=== PATIENT | female | born 1980 | race African-American/Black ===

== ENCOUNTER 2016-07-22 00:13 | Emergency (ER) | payer MEDICAID ==
[~2016-07-22] VITALS: Ht 165.1 cm; Wt 104.0 kg
[~2016-07-22 00:13] MED LIST: PREN-88 PO
[2016-07-22] MEDS ORDERED: SODIUM CHLORIDE 0.9% 1,000 ML IV ONE (04:16)
[2016-07-22] MEDS ORDERED: ONDANSETRON HCL 4MG/2ML VIAL IV ONE (04:30)
[2016-07-22 04:45] LABS: BASOPHILS % 0.3 % (0.0-2.0); EOSINOPHILS % 0.2 % (0.0-5.0); HEMATOCRIT. 36.6 % (36.0-48.0); HEMOGLOBIN. 12.1 g/dL (12.0-16.0); LYMPHOCYTES % 32.8 % (20.0-50.0); MEAN CORPUSCULAR HEMOGLOBIN 27.1 pg (28.0-32.0); MEAN CORPUSCULAR HGB CONC 33.1 g/dL (31.0-37.0); MEAN PLATELET VOLUME 8.9 fl (7.4-10.4); MONOCYTES % 9.6 % (2.0-8.0); NEUTROPHILS % 57.1 % (40.0-76.0); PLATELET 203 x1000/uL (130-400); RED BLOOD CELL COUNT 4.46 mill/uL (4.2-5.4); RED CELL DISTRIBUTION WIDTH 13.6 % (11.6-14.6); WHITE BLOOD COUNT 5.7 x1000/uL (4.5-11.0)
[2016-07-22 04:49] LABS: CHLORIDE 104 mEq/L (98-107); INDEX HEMOLYSI 1 (1-3); INDEX ICTERIC 1 (1-4); INDEX LIPEMIC 1 (1-3)
[2016-07-22 05:04] LABS: ALANINE AMINOTRANSFERASE 41 IU/L (13-61); ALBUMIN 3.6 g/dL (3.4-5.0); ANION GAP 15; CALCIUM 9.4 mg/dL (8.5-10.1); CARBON DIOXIDE 25 mEq/L (21-32); LIPASE 105 IU/L (73-393); UREA NITROGEN BLOOD 7 mg/dL (7-21); eGFR > 60 mL/min (>60)
[2016-07-22 05:24] LABS: B-HCG QUANTITATIVE 116237 mIU/mL (<3)
[2016-07-22 06:05] VITALS: BP 125/67
[2016-07-22 06:17] LABS: CLARITY URINE CLOUDY (CLEAR); COLOR URINE DARK YELLOW (YELLOW); GLUCOSE URINE NEGATIVE (NEGATIVE); KETONES URINE 3+ (NEGATIVE); LEUKOCYTE ESTERASE URINE NEGATIVE (NEGATIVE); NITRITE URINE NEGATIVE (NEGATIVE); OCCULT BLOOD URINE NEGATIVE (NEGATIVE); PH URINE 5.5 (4.5-8.0); PROTEIN URINE TRACE (NEGATIVE); SPECIFIC GRAVITY URINE 1.034 (1.005-1.030)
[2016-07-22 06:54] LABS: BACTERIA URINE NONE SEEN; MUCUS URINE 2+ /lpf (< = 2+); RBC URINE NONE SEEN /hpf (0-2); SQUAMOUS EPITHELIAL CELL URINE FEW /lpf (RARE/1+)
== END 2016-07-22 07:57 | disposition home or self-care (01) ==
LOC: ER 07:39
DX: O26.891 Other specified pregnancy related conditions, first trimester (principal); O21.9 Vomiting of pregnancy, unspecified; Z3A.01 Less than 8 weeks gestation of pregnancy; R11.2 Nausea with vomiting, unspecified; R10.9 Unspecified abdominal pain; Z98.890 Other specified postprocedural states
CPT/HCPCS: 36415; 76801; 76817; 80053; 81001; 83690; 84702; 85025; 86900; 86901; 96361; 96374; 99285; J2405; J7030; Z7610